=== PATIENT | female | born 1995 | race Caucasian/White ===

== ENCOUNTER 2016-05-30 09:26 | Emergency (ER) ==
--- NOTE | 2016-05-30 10:43 | PROVIDER DOCUMENTATION ---
HPI-General Adult - General Source: patient - History of Present Illness -Gen Adult Nature of Presenting Problems: 21 y/o F presents to ED cc of congestion x 3 days. Pt reports having cough/ congestion that is not improving. Pt is alert and oriented. Denies having fever. Location of Pain/Injury: reports: none Pain Radiation: reports: no radiation Quality of Pain: reports: none Severity: reports: mild Onset/Duration: reports: gradual (x3 days) Timing: reports: still present Context/Activities at Onset: reports: none Modifying Factors: improves with: nothing Associated Symptoms: reports: cough, sinus congestion/drainage. denies: diarrhea, fever/chills, vomiting Similar Symptoms Previously?: No Recently seen or treated by another doctor?: No <Debra Mirza - Last Filed: 05/30/16 10:37> - General Source: patient, family - History of Present Illness -Gen Adult Nature of Presenting Problems: COLD AND COUGH WITH RUNNY NOSE Vital Signs Temp Pulse Resp BP Pulse Ox 05/30/16 09:38 98.1 F 95 H 18 102/55 100 No Known Allergies Allergy (Verified 05/30/16 09:48) No Home Medications 05/30/16 Location of Pain/Injury: reports: none Pain Radiation: reports: no radiation Quality of Pain: reports: none Severity: reports: mild Onset/Duration: reports: unsure Timing: reports: still present Modifying Factors: improves with: nothing Associated Symptoms: reports: EENT symptoms Similar Symptoms Previously?: No Recently seen or treated by another doctor?: No <Afsaneh Head - Last Filed: 05/30/16 11:16> - General Chief Complaint: Cold Symptoms Stated Complaint: COLD Time Seen by Provider: 05/30/16 10:30 Allergies/Adverse Reactions: Patient Allergies Allergy/AdvReac Type Severity Reaction Status Date / Time No Known Allergies Allergy Verified 05/30/16 09:48 Home Medications: Home Medication List Medication Instructions Recorded Confirmed Last Taken Type Amoxicillin [Amoxil] 400 mg PO Q12HR #200 bottle 05/30/16 Unknown Rx Review of Systems - Adult - REVIEW OF SYSTEMS - ADULT Constitutional: denies: chills, fever Cardiovascular: denies: chest pain, palpitations Respiratory: reports: cough, other (congestion). denies: dyspnea on exertion, shortness of breath Gastrointestinal: denies: abdominal pain, diarrhea, nausea, vomiting Musculoskeletal: denies: bone pain, back pain Neurological: denies: dizziness/vertigo, headache/migraines <HermesDebra - Last Filed: 05/30/16 10:37> - REVIEW OF SYSTEMS - ADULT Constitutional: reports: no symptoms reported, see HPI Eyes: reports: no symptoms reported Ears, Nose, Mouth & Throat: reports: ear pain, sinus problem Cardiovascular: reports: no symptoms reported Respiratory: reports: cough Gastrointestinal: reports: no symptoms reported Genitourinary: reports: no symptoms reported Musculoskeletal: reports: no symptoms reported Integumentary: reports: no symptoms reported Neurological: reports: no symptoms reported Psychiatric: reports: no symptoms reported Endocrine: reports: no symptoms reported Hematologic/Lymphatic: reports: no symptoms reported Allergic/Immunologic: reports: see HPI, allergic rhinitis <Afsaneh Head - Last Filed: 05/30/16 11:16> Past History - Adult - PAST MEDICAL HISTORY-ADULT Review of Records: reports: Old Records Reviewed, Nursing Assessment Review - PRIOR SURGERIES/PROCEDURES Surgical/Procedure History: reports: none - IMMUNIZATION STATUS Childhood Immunizations: See Nurse Assessment Flu Vaccine: See Nurse Assessment - SOCIAL HISTORY Smoking: denies Substance Use: denies Living Situation: family <HermesDebra - Last Filed: 05/30/16 10:37> - PAST MEDICAL HISTORY-ADULT Review of Records: reports: Nursing Assessment Review Major Childhood Illnesses: reports: denies history Cardiovascular: reports: denies history Respiratory: reports: denies history Gastrointestinal: reports: denies history Obstetrical/Gynecological: reports: denies history Genitourinary: reports: denies history Musculoskeletal: reports: denies history Neurological: reports: denies history Endocrine/Immune: reports: denies history Other Conditions: reports: denies history <Afsaneh Head - Last Filed: 05/30/16 11:16> Physical Exam-General - PHYSICAL EXAM-ADULT Initial Vital Signs Reviewed: Yes - CONSTITUTIONAL General Appearance: appears well, alert, no apparent distress - EYES Eyes: PERRL/EOMI, pink conjunctivae, fundi clear, no AV nicking - HEAD, EARS, NOSE, MOUTH & THROAT HENMT: moist mucous membranes, other (TM REDNESS) - NECK Neck: non-tender, full range of motion - RESPIRATORY Respiratory: chest non-tender, lungs clear, normal breath sounds - CARDIOVASCULAR Cardiovascular: normal peripheral pulses, no edema, tachycardia - GASTROINTESTINAL (ABDOMEN) Abdominal Exam: normal bowel sounds, non tender, soft - MUSCULOSKELETAL Extremity: normal range of motion, non-tender, normal gait - SKIN Integumentary: normal color, normal turgor, warm/dry - NEUROLOGIC Neurologic: grossly normal, no motor/sensory deficits - PSYCHIATRIC Psych/Mental Status: normal mood/affect, normal thought content, normal thought process, oriented x 3 <Debra Mirza - Last Filed: 05/30/16 10:37> - PHYSICAL EXAM-ADULT Initial Vital Signs Reviewed: Yes - CONSTITUTIONAL General Appearance: appears well, alert - EYES Eyes: PERRL/EOMI, pink conjunctivae - HEAD, EARS, NOSE, MOUTH & THROAT HENMT: moist mucous membranes, TMs normal, pharynx normal, maxillary tenderness , other (TURBINATES ERYTHEMATOUS, YELLOW DISCHARGE) - NECK Neck: non-tender - RESPIRATORY Respiratory: chest non-tender, lungs clear - CARDIOVASCULAR Cardiovascular: normal peripheral pulses, regular rate, rhythm - GENITOURINARY Rectal Exam: deferred - LYMPHATIC Lymphatic: no adenopathy - MUSCULOSKELETAL Back Exam: normal inspection - SKIN Integumentary: normal color, normal turgor - NEUROLOGIC Neurologic: grossly normal - PSYCHIATRIC Psych/Mental Status: normal mood/affect <Afsaneh Head - Last Filed: 05/30/16 11:16> Departure <Debra Mirza - Last Filed: 05/30/16 10:37> - Departure Time of Disposition Order: 11:13 Certified Medical Emergency: Emergent <Afsaneh Head - Last Filed: 05/30/16 11:16> - Departure DIAGNOSIS: Cough Sinusitis Qualifiers: Sinusitis location: unspecified location Chronicity: acute Recurrence: not specified as recurrent Qualified Code(s): J01.90 - Acute sinusitis, unspecified Allergic rhinitis Qualifiers: Allergic rhinitis trigger: other Allergic rhinitis seasonality: unspecified seasonality Qualified Code(s): J30.89 - Other allergic rhinitis Disposition: HOME 01 Condition: Critical Additional Instructions: INCREASE FLUIDS AND REST. TAKE CLARITIN OR ZYRTEC FOR RUNNY NOSE OR POST NASAL DRAINAGE. ED Follow Up Instructions: You have been treated by a care provider in the Emergency Department. These instructions are being provided to you so you can have an understanding of how to care for yourself upon discharge. Upon discharge from the Emergency Department, you are responsible for making arrangements for follow-up care by a physician of your choice. Take all prescribed medications as directed. Return to the Emergency Department immediately for any new or worsening symptoms. You may call the Physician Referral phone number at [phone] to obtain a list of Physicians who are taking new patients. Prescriptions: Amoxicillin [Amoxil] 400 mg PO Q12HR #200 bottle Attestation - Scribe Verification/Attestation Scribe:: Debra Mirza Acting as Scribe for:: David Gray Scribe documention review:: This chart was documented by a scribe and accurately reflects the service the provider performed and the decisions made by the provider. - Physician/ JAS Attestation Advanced Practice Provider:: Afsaneh Head <Debra Mirza - Last Filed: 05/30/16 10:37> Physician Attestation
[2016-05-30 11:28] VITALS: BP 110/65
== END 2016-05-30 11:28 | disposition home or self-care (01) ==
LOC: ED 09:26
DX: J01.90 Acute sinusitis, unspecified (principal); J30.89 Other allergic rhinitis; R09.81 Nasal congestion; R05 Cough; R00.0 Tachycardia, unspecified